=== PATIENT | male | born 1945 | race Caucasian/White ===

== ENCOUNTER 2020-11-16 13:53 | Day surgery (SDC) | payer MEDICARE, BC ==
[2020-11-13 10:38] LABS: BASOPHILS # (AUTO) 0.1 X10'3 (0-0.2); BASOPHILS % (AUTO) 1.6 % (0-1); EOSINOPHILS # (AUTO) 0.3 X10'3 (0-0.9); HEMATOCRIT 44.4 % (42.0-52.0); LYMPHOCYTES % (AUTO) 26.3 % (21-51); MEAN CORPUSCULAR HEMOGLOBIN 32.2 PG (27.0-31.0); MEAN CORPUSCULAR HGB CONC 33.8 g/dL (33.0-36.5); MEAN CORPUSCULAR VOLUME 95.3 FL (78-98); MEAN PLATELET VOLUME 7.7 FL (7.4-10.4); MONOCYTES # (AUTO) 0.5 X10'3 (0-0.9); MONOCYTES % (AUTO) 6.3 % (2-12); NEUTROPHILS # (AUTO) 4.7 X10'3 (1.8-7.7); NEUTROPHILS % (AUTO) 61.8 % (42-75); PLATELET COUNT 226 X10'3 (140-440); RED BLOOD COUNT 4.66 X10'6 (4.70-6.10); RED CELL DISTRIBUTION WIDTH 14.9 % (11.5-14.5); WHITE BLOOD COUNT 7.7 X10'3 (4.5-11.0)
[2020-11-13 10:51] LABS: PARTIAL THROMBOPLASTIN TIME 27 SECONDS (22-32)
[2020-11-13 11:00] LABS: ALBUMIN 3.3 G/DL (3.4-5.0); ANION GAP 11 (8-16); BLOOD UREA NITROGEN 25 MG/DL (7-18); BUN/CREATININE RATIO 23.8 (5.4-32.0); CALCIUM 8.9 MG/DL (8.5-10.1); CHLORIDE 106 MMOL/L (99-107); CREATININE 1.05 MG/DL (0.60-1.10); GLUCOSE 114 MG/DL (70-104); POTASSIUM 4.1 MMOL/L (3.5-5.1); SODIUM 142 MMOL/L (135-145); TOTAL CARBON DIOXIDE 25.3 MMOL/L (24-32); eGFR 69 ML/MIN
[2020-11-16] VITALS (8 sets, daily range): BP systolic 131–156; BP diastolic 65–90
[~2020-11-16] VITALS: Ht 177.8 cm; Wt 96.5 kg
[2020-11-16] MEDS ORDERED: LORazepam 0.5 MG tablet PO PRN (14:20)
[2020-11-16] MEDS ORDERED: normal saline 1,000 ML IV SCH (14:20)
[2020-11-16] MEDS ORDERED: diphenhydrAMINE 25mg capsule PO PRN (14:20)
[2020-11-16] MEDS ORDERED: LIDOcaine/PRILOcaine 5gm cream TP ONE (14:20)
[2020-11-16] MEDS ORDERED: ASCO250T68 PO (15:27)
[2020-11-16] MEDS ORDERED: HCTZ25T PO (15:27)
[2020-11-16] MEDS ORDERED: CALC-965 PO (15:27)
[2020-11-16] MEDS ORDERED: METF-438 PO (15:27)
[2020-11-16] MEDS ORDERED: ZINC50TA60 PEG (15:27)
[2020-11-16] MEDS ORDERED: DILT120C19 PO (15:27)
[2020-11-16] MEDS ORDERED: OMEG-82 PO (15:27)
[2020-11-16] MEDS ORDERED: CHOL20002 PO (15:27)
[2020-11-16] MEDS ORDERED: APIX5TAB3 PO (15:27)
[2020-11-16] MEDS ORDERED: OCUVITE PO (15:27)
[2020-11-16] MEDS ORDERED: LOSA50TA64 PO (15:27)
[2020-11-16] MEDS ORDERED: PANT40TA54 PO (15:27)
[2020-11-16] MEDS ORDERED: ALLO300T8 PO (15:27)
[2020-11-16] MEDS ORDERED: ATOR40TA71 PO (15:27)
[2020-11-16] MEDS ORDERED: LIDOcaine 1% (10mg/ml)w/preservative injection 20ml MDV ONE (16:43)
[2020-11-16] MEDS ORDERED: heparin 1,000unit/ml 10ml vial 10 ML ONE (16:43)
[2020-11-16] MEDS ORDERED: iohexol 350MG/ML 100ml bottle IV ONE (16:43)
[2020-11-16] MEDS ORDERED: fentaNYL/PF 50MCG/1 ML 2ML syringe ONE (16:44)
[2020-11-16] MEDS ORDERED: verapamil 2.5 mg/ml inj IV ONE (16:44)
[2020-11-16] MEDS ORDERED: nitroGLYCERIN-Tridil 50MG/D5W 250 ML IV ONE (16:44)
[2020-11-16] MEDS ORDERED: midazolam 2 mg/2 ml injection ONE (16:44)
[2020-11-16] MEDS ORDERED: iohexol 350 MG/ML 50ML vial IV ONE (17:23)
== END 2020-11-16 19:51 | disposition home or self-care (01) ==
LOC: SSTAY O 13:53
PROVIDERS: ATTEND Student in an Organized Health Care Education/Training Program
DX: R94.39 Abnormal result of other cardiovascular function study (principal); I48.91 Unspecified atrial fibrillation; E11.9 Type 2 diabetes mellitus without complications; E78.5 Hyperlipidemia, unspecified; I10 Essential (primary) hypertension; I35.0 Nonrheumatic aortic (valve) stenosis; Z79.84 Long term (current) use of oral hypoglycemic drugs; Z79.899 Other long term (current) drug therapy; Z79.01 Long term (current) use of anticoagulants; Z88.8 Allergy status to other drugs, medicaments and biological substances; Z87.891 Personal history of nicotine dependence
CPT/HCPCS: 36415; 80048; 82948; 85025; 85610; 85730; 93005; 93458; 99152; C1769; C1894; J1644; J2001; J2250; J3010; J7030; Q0163; Q9967; A4620; A5120; J3490